=== PATIENT | male | born 1940 | race Caucasian/White ===

== ENCOUNTER 2016-04-21 09:54 | Inpatient (IN) | payer OTHER, MEDICARE ==
[~2016-04-21] VITALS: Ht 195.6 cm; Wt 109.5 kg
[~2016-04-21 09:54] MED LIST: AMARYL4 MG PO; ASPIR 8181 M1 PO; ASPIRIN325 MG PO; Amaryl PO; Ascorbic Acid,Ester- PO; Betapace,Sorine PO; CEFDINIR300 MG PO; CEPHALEXIN500 MG PO; CIPRO250 MG PO; CLOTRIMAZOLE15 GM TP; COREG12.5 M1 PO; Colace PO; Colchicine,Colcrys PO; Coreg PO; Coumadin,Jantoven PO; DOCUSATE SODIU100 MG PO; Dilaudid PO; Dulcolax PO; Ecotrin PO; FISH OIL OMEGA1 EACH PO; FISH OIL SOFTG1 EACH PO; FLOMAX0.4 MG PO; FOLIC ACID1 MG PO; FORTAMET1000 M1 PO; Feosol PO; Flexeril PO; GABAPENTIN100 MG; GLIPIZIDE5 MG PO; GLUCOPHAGE1000 MG PO; GLUCOTROL5 MG PO; INR ON; IRON325 M1 PO; K-Dur PO; Keflex PO; LANTUS 3 M100 UNITS1 SC; LASIX40 MG PO; LASIX80 MG PO; LEVBID0.375 MG PO; LEVEMIR FL100 UNITS/ SC; LITE COAT ASPI325 M1 PO; LO-DOSE ASPIRIN81 M1 PO; Lovenox SC; MELATONIN10 M1 PO; MELATONIN3 MG PO; MULTI VITAMIN1 EACH PO; MYBETRIC PO; MYRBETRIQ50 MG PO; NOVOLOG 10100 UNITS/ SC; NOVOLOG PE100 UNITS/ SC; Neurontin PO; OMEPRAZOLE40 M1 PO; OxyCONTIN PO; PRAVACHOL40 MG PO; PRAVACHOL80 MG PO; PRAVASTATIN SOD40 MG PO; PREVACID15 MG PO; PRILOSEC40 MG PO; Protonix PO; Remeron PO; SENNA-TIME S T1 EACH PO; SENOKOT S,PE1 TABLET PO; SOTALOL80 MG PO; TAMSULOSIN HCL0.4 MG PO; THERAGRAN1 TABLET PO; TRICOR48 MG PO; TYLENOL EXTRA500 MG PO; Tylenol Extra Streng PO; Tylenol Regular Stre PO; VOLTAREN 1% GE100 GM TP; WELCHOL625 MG PO
[2016-04-21 10:54] LABS: EOSINOPHIL (%) 0.3 % (0-5); HEMATOCRIT 41.8 % (38.0-50.0); IMMATURE GRANULOCYTE (%) 0.1 % (0.0-0.7); IMMATURE GRANULOCYTE COUNT 0.1 K/uL; MCH 30.9 PG (29.0-34.0); MCHC 33.7 G/DL (30.0-36.0); MCV 91.7 FL (86-99); MEAN PLAT.VOLUME 11.8 uM^3 (9.0-12.4); MONOCYTE (%) 11.3 % (3-12); NEUTROPHIL (%) 76.8 % (45-76); PLATELET COUNT 101 K/uL (156-360); RBC DIS.WIDTH-CV 13.9 % (11.8-14.6); RBC DIS.WIDTH-SD 45.8 % (39-53); RED BLOOD COUNT 4.56 M/uL (4.00-5.50); WHITE BLOOD COUNT 9.1 K/uL (4.1-10.2)
[2016-04-21 11:03] LABS: INTER. NORMALIZED RATIO 1.2; PROTHROMBIN TIME 11.8 (9.2-11.2)
[2016-04-21 11:05] LABS: CHLORIDE 104 mEq/L (99-109); POTASSIUM 4.6 mEq/L (3.7-5.4); SODIUM 140 mEq/L (136-147)
[2016-04-21 11:07] LABS: GLUCOSE 201 mg/dL (70-99)
[2016-04-21 11:08] LABS: ANION GAP 11 MEQ/L (2-14)
[2016-04-21 11:09] LABS: TOTAL BILIRUBIN 1.2 mg/dL (0.0-1.0)
[2016-04-21 11:11] LABS: ALKALINE PHOSPHATASE 148 IU/L (3-129); GFR ESTIMATE (CALCULATED) 49 mL/min/
[2016-04-21 11:12] LABS: UREA NITROGEN (BUN) 18 mg/dL (9-23)
[2016-04-21 11:15] LABS: TROP-I INTERPRETATION NEGATIVE; TROPONIN-I 0.02 ng/mL (0.0-0.30)
[2016-04-21 11:39] LABS: ADD MIUA? YES; BILIRUBIN NEGATIVE; BLOOD NEGATIVE; COLOR YELLOW ((YELLOW)); GLUCOSE (STRIP) NEGATIVE; KETONES NEGATIVE; LEUKOCYTES LARGE; NITRITE POSITIVE; PROTEIN (STRIP) TRACE
[2016-04-21 11:55] LABS: CASTS NONE SEEN /LPF; EPITHELIAL CELLS RARE; MUCUS NONE SEEN; PATHOLOGICAL CAST NONE SEEN; RED BLOOD CELLS 0-5 /HPF (0-5); SMALL ROUND CELL NONE SEEN; YEAST-LIKE CELL NONE SEEN
[2016-04-21 12:14] LABS: UCUL ADDED? NO; WHITE BLOOD CELLS 30-40 /HPF (0-5)
[2016-04-21 12:15] LABS: BACTERIA 1+; CRYSTALS NONE SEEN
[2016-04-21] MEDS ORDERED: NOVOLOG PE100 UNITS/ SC ×2 (13:35)
[2016-04-21] MEDS ORDERED: FISH OIL OMEGA1 EAC2 PO (13:37)
[2016-04-21] MEDS ORDERED: WELCHOL625 MG PO (13:37)
[2016-04-21 15:15] VITALS: BP 117/71
[2016-04-21 16:29] LABS: POINT-OF-CARE METER ID UU13113717
[2016-04-21 18:45] LABS: TROP-I INTERPRETATION NEGATIVE; TROPONIN-I 0.02 ng/mL (0.0-0.30)
[2016-04-21 19:28] VITALS: BP 139/72
[2016-04-21 21:26] LABS: POINT-OF-CARE METER ID UU13113717
[2016-04-21 23:59] VITALS: BP 144/75
[2016-04-22 00:58] LABS: TROP-I INTERPRETATION NEGATIVE; TROPONIN-I 0.02 ng/mL (0.0-0.30)
[2016-04-22 03:45] VITALS: BP 106/64
[2016-04-22 06:33] LABS: POINT-OF-CARE METER ID UU13113717
[2016-04-22 06:57] LABS: TROP-I INTERPRETATION NEGATIVE; TROPONIN-I 0.01 ng/mL (0.0-0.30)
[2016-04-22 07:51] VITALS: BP 111/68
[2016-04-22 11:37] VITALS: BP 103/56
[2016-04-22 14:09] LABS: INFLUENZA A VIRAL ANTIGEN POSITIVE; INFLUENZA B VIRAL ANTIGEN NEGATIVE
[2016-04-22 15:34] VITALS: BP 116/68
[2016-04-22 16:13] LABS: POINT-OF-CARE METER ID UU13113717
[2016-04-22 23:09] LABS: POINT-OF-CARE METER ID UU13113717
[2016-04-22 23:23] VITALS: BP 132/74
[2016-04-23 03:11] VITALS: BP 141/66
[2016-04-23 06:37] LABS: HEMATOCRIT 39.9 % (38.0-50.0); MCH 30.6 PG (29.0-34.0); MCHC 33.1 G/DL (30.0-36.0); MCV 92.4 FL (86-99); PLATELET COUNT 93 K/uL (156-360); RBC DIS.WIDTH-CV 14.3 % (11.8-14.6); RBC DIS.WIDTH-SD 48.3 % (39-53); RED BLOOD COUNT 4.32 M/uL (4.00-5.50); WHITE BLOOD COUNT 6.9 K/uL (4.1-10.2)
[2016-04-23 06:52] LABS: EOSINOPHIL (%) 1.4 % (0-5); EOSINOPHIL COUNT 0.1 K/uL (0-0.3); IMMATURE GRANULOCYTE (%) 0.1 % (0.0-0.7); LYMPHOCYTE COUNT 1.2 K/uL (1.0-2.8); MONOCYTE (%) 18.2 % (3-12); MONOCYTE COUNT 1.3 K/uL (0-0.8); NEUTROPHIL (%) 62.3 % (45-76); NEUTROPHIL COUNT 4.3 K/uL (1.8-6.4)
[2016-04-23 07:04] LABS: ANION GAP 10 MEQ/L (2-14); CHLORIDE 104 MEQ/L (99-109); GFR ESTIMATE (CALCULATED) > 59 mL/min/; GLUCOSE 121 mg/dL (70-99); POTASSIUM 3.9 MEQ/L (3.7-5.4); SAMPLE HEMOLYSIS CHECK 0; SAMPLE ICTERIC CHECK 0; SAMPLE LIPEMIA CHECK 0; SODIUM 138 MEQ/L (136-147); UREA NITROGEN (BUN) 19 mg/dL (9-23)
[2016-04-23 07:29] VITALS: BP 134/70
[2016-04-23 11:35] LABS: POINT-OF-CARE METER ID UU13113725
[2016-04-23 14:57] VITALS: BP 150/73
[2016-04-23 16:29] LABS: POINT-OF-CARE METER ID UU13113725
[2016-04-23 19:30] VITALS: BP 132/74
[2016-04-23 20:52] LABS: POINT-OF-CARE METER ID UU13113725
[2016-04-24] VITALS: BP 129/68
[2016-04-24 03:30] VITALS: BP 132/70
[2016-04-24 06:19] LABS: POINT-OF-CARE METER ID UU13113725
[2016-04-24 08:10] VITALS: BP 130/76
[2016-04-24 10:04] LABS: POINT-OF-CARE METER ID UU13113717
[2016-04-24] MEDS ORDERED: OSELTAMIVIR PHO30 MG PO (11:25)
[2016-04-24] MEDS ORDERED: CEFDINIR300 MG PO (11:26)
== END 2016-04-24 12:33 | disposition home or self-care (01) | DRG 690 ==
LOC: EME → EDBD 09:54 → EME 09:54 → EDOF 12:52 → 5EAST 12:52
PROVIDERS: Hospitalist; Internal Medicine; Physician Assistant
DX: N39.0 Urinary tract infection, site not specified (principal); I48.92 Unspecified atrial flutter; J09.X2 Influenza due to identified novel influenza A virus with other respiratory manifestations; I12.9 Hypertensive chronic kidney disease with stage 1 through stage 4 chronic kidney disease, or unspecified chronic kidney disease; W19.XXXA Unspecified fall, initial encounter; I48.0 Paroxysmal atrial fibrillation; E78.5 Hyperlipidemia, unspecified; I25.10 Atherosclerotic heart disease of native coronary artery without angina pectoris; N18.3 Chronic kidney disease, stage 3 (moderate); M62.81 Muscle weakness (generalized); J44.9 Chronic obstructive pulmonary disease, unspecified; I67.2 Cerebral atherosclerosis; J84.10 Pulmonary fibrosis, unspecified; E11.65 Type 2 diabetes mellitus with hyperglycemia; E11.22 Type 2 diabetes mellitus with diabetic chronic kidney disease; Z79.4 Long term (current) use of insulin; Z95.5 Presence of coronary angioplasty implant and graft; Z95.2 Presence of prosthetic heart valve; Z86.73 Personal history of transient ischemic attack (TIA), and cerebral infarction without residual deficits; Z87.891 Personal history of nicotine dependence; Z88.0 Allergy status to penicillin; Z87.440 Personal history of urinary (tract) infections; Z88.2 Allergy status to sulfonamides; Z82.49 Family history of ischemic heart disease and other diseases of the circulatory system
CPT/HCPCS: 70450; 71020; 80048; 80053; 81003; 82948; 84484; 85025; 85610; 87040; 87502; 93005; 99281; 99285; J0696; J1650; J1815; J1956; J7030; J7050

== ENCOUNTER 2016-05-05 19:30 | Observation (INO) | payer OTHER, MEDICARE ==
[~2016-05-05] VITALS: Ht 195.6 cm; Wt 105.4 kg
[~2016-05-05 19:30] MED LIST changes: +FISH OIL OMEGA1 EAC2 PO; +OSELTAMIVIR PHO30 MG PO
[2016-05-05 20:00] LABS: POINT-OF-CARE METER ID UU13113778
[2016-05-05 20:18] LABS: EOSINOPHIL (%) 1.8 % (0-5); EOSINOPHIL COUNT 0.2 K/uL (0-0.3); HEMATOCRIT 41.7 % (38.0-50.0); IMMATURE GRANULOCYTE (%) 0.1 % (0.0-0.7); IMMATURE GRANULOCYTE COUNT 0.1 K/uL; MCH 30.5 PG (29.0-34.0); MCHC 33.6 G/DL (30.0-36.0); MCV 90.8 FL (86-99); MEAN PLAT.VOLUME 11.3 uM^3 (9.0-12.4); MONOCYTE COUNT 0.6 K/uL (0-0.8); NEUTROPHIL (%) 68.3 % (45-76); NEUTROPHIL COUNT 6.2 K/uL (1.8-6.4); RBC DIS.WIDTH-CV 13.8 % (11.8-14.6); RBC DIS.WIDTH-SD 44.9 % (39-53); RED BLOOD COUNT 4.59 M/uL (4.00-5.50)
[2016-05-05 20:23] LABS: PLATELET COUNT 165 K/uL (156-360); WHITE BLOOD COUNT 9.1 K/uL (4.1-10.2)
[2016-05-05 20:25] LABS: CHLORIDE 104 mEq/L (99-109); Estimated Average Glucose 183 mg/dL (70-123); POTASSIUM 4.1 mEq/L (3.7-5.4); SODIUM 137 mEq/L (136-147)
[2016-05-05 20:26] LABS: INTER. NORMALIZED RATIO 1.1; PROTHROMBIN TIME 11.4 (9.2-11.2); PTT 28.2 (25-32)
[2016-05-05 20:27] LABS: GLUCOSE 206 mg/dL (70-99)
[2016-05-05 20:28] LABS: ANION GAP 11 MEQ/L (2-14)
[2016-05-05 20:29] LABS: TOTAL BILIRUBIN 0.6 mg/dL (0.0-1.0)
[2016-05-05 20:31] LABS: ALKALINE PHOSPHATASE 154 IU/L (3-129); GFR ESTIMATE (CALCULATED) 58 mL/min/
[2016-05-05 20:32] LABS: UREA NITROGEN (BUN) 21 mg/dL (9-23)
[2016-05-05 20:35] LABS: TROP-I INTERPRETATION NEGATIVE; TROPONIN-I < 0.01 ng/mL (0.0-0.30)
[2016-05-05] MEDS ORDERED: ALPRAZOLAM0.25 M2 PO (21:03)
[2016-05-05] MEDS ORDERED: FISH OIL 1,0001 EA10 PO (21:06)
[2016-05-05 21:12] LABS: HDL CHOLESTEROL 26 MG/DL (Desirable>=40); NON-HDL CHOLESTEROL 143 mg/dL (Desirable<160); TOTAL CHOLESTEROL 169 mg/dL (Desirable<200); TRIGLYCERIDES 402 MG/DL (Normal: <150)
[2016-05-06 07:57] LABS: POINT-OF-CARE METER ID UU13113747
[2016-05-06 14:44] VITALS: BP 103/57
[2016-05-06 16:05] VITALS: BP 113/71
[2016-05-06] MEDS ORDERED: PLAVIX75 MG PO (17:04)
[2016-05-06] MEDS ORDERED: LO-DOSE ASPIRIN81 M2 PO (17:04)
== END 2016-05-06 17:57 | disposition home or self-care (01) ==
LOC: EME 19:30 → EDOF 23:18 → 5WEST 05-06 14:09
PROVIDERS: Emergency Medicine; Student in an Organized Health Care Education/Training Program
DX: G45.9 Transient cerebral ischemic attack, unspecified (principal); E78.5 Hyperlipidemia, unspecified; I10 Essential (primary) hypertension; E11.9 Type 2 diabetes mellitus without complications; Z86.73 Personal history of transient ischemic attack (TIA), and cerebral infarction without residual deficits; I25.10 Atherosclerotic heart disease of native coronary artery without angina pectoris; Z95.1 Presence of aortocoronary bypass graft; Z95.2 Presence of prosthetic heart valve; Z86.19 Personal history of other infectious and parasitic diseases; I48.0 Paroxysmal atrial fibrillation; I44.7 Left bundle-branch block, unspecified; Z87.891 Personal history of nicotine dependence; Z79.4 Long term (current) use of insulin; Z79.82 Long term (current) use of aspirin; Z88.0 Allergy status to penicillin; Z88.2 Allergy status to sulfonamides; Z88.8 Allergy status to other drugs, medicaments and biological substances; Z91.013 Allergy to seafood; Z82.49 Family history of ischemic heart disease and other diseases of the circulatory system
CPT/HCPCS: 70450; 70551; 71020; 80053; 80061; 81003; 82948; 83036; 84484; 85025; 85610; 85730; 93005; 93880; 99281; 99285; G0378; J1815

== ENCOUNTER 2017-06-21 08:49 | Day surgery (SDC) | payer OTHER, MEDICARE ==
[~2017-06-21] VITALS: Ht 195.6 cm; Wt 105.0 kg
[~2017-06-21 08:49] MED LIST changes: +ALPRAZOLAM0.25 M2 PO; +CYMBALTA20 MG PO; +FISH OIL 1,0001 EA10 PO; +LO-DOSE ASPIRIN81 M2 PO; +PLAVIX75 MG PO
== END 2017-06-21 11:00 | disposition home or self-care (01) ==
LOC: CATH 08:49
PROVIDERS: Internal Medicine Clinical Cardiac Electrophysiology
PROC: 0JPT02Z Removal of Monitoring Device from Trunk Subcutaneous Tissue and Fascia, Open Approach (ICD-10-PCS; principal; 2017-06-21)
DX: Z45.09 Encounter for adjustment and management of other cardiac device (principal); E11.9 Type 2 diabetes mellitus without complications; E78.5 Hyperlipidemia, unspecified; I11.9 Hypertensive heart disease without heart failure; I25.10 Atherosclerotic heart disease of native coronary artery without angina pectoris; I48.0 Paroxysmal atrial fibrillation; I73.9 Peripheral vascular disease, unspecified; D64.9 Anemia, unspecified; Z82.49 Family history of ischemic heart disease and other diseases of the circulatory system; Z79.82 Long term (current) use of aspirin; Z79.4 Long term (current) use of insulin; Z86.73 Personal history of transient ischemic attack (TIA), and cerebral infarction without residual deficits; Z95.1 Presence of aortocoronary bypass graft; Z95.2 Presence of prosthetic heart valve; Z87.891 Personal history of nicotine dependence
CPT/HCPCS: 82948; J2250; J3010

== ENCOUNTER 2017-10-15 21:58 | Emergency (ER) | payer OTHER, MEDICARE ==
[~2017-10-15] VITALS: Ht 195.6 cm; Wt 102.7 kg
[~2017-10-15 21:58] MED LIST changes: +LEVEMIR FL100 UNIT/1 SC
[2017-10-15 22:32] LABS: HEMATOCRIT 43.1 % (38.0-50.0); HEMOGLOBIN 14.6 G/DL (12.5-16.6); MCHC 33.9 G/DL (30.0-36.0); MCV 91.5 FL (86-99); PLATELET COUNT 127 K/uL (156-360); RBC DIS.WIDTH-CV 13.6 % (11.8-14.6); RBC DIS.WIDTH-SD 45.8 % (39-53); RED BLOOD COUNT 4.71 M/uL (4.00-5.50); WHITE BLOOD COUNT 7.6 K/uL (4.1-10.2)
[2017-10-15 22:44] LABS: CHLORIDE 105 mEq/L (99-109); POTASSIUM 4.4 mEq/L (3.7-5.4); SODIUM 139 mEq/L (136-147)
[2017-10-15 22:47] LABS: GLUCOSE 226 mg/dL (70-99)
[2017-10-15 22:49] LABS: CREATININE 1.3 mg/dL (0.6-1.3); GFR ESTIMATE (CALCULATED) 57 mL/min/ (58.99-99999)
[2017-10-15 22:50] LABS: UREA NITROGEN (BUN) 20 mg/dL (9-23)
[2017-10-15 23:14] LABS: TOTAL BILIRUBIN 0.5 mg/dL (0.0-1.0)
[2017-10-15 23:15] LABS: ALKALINE PHOSPHATASE 168 IU/L (3-129)
[2017-10-15 23:17] LABS: AST (GOT) 42 IU/L (2-34); DIRECT BILIRUBIN 0.1 mg/dL (0.0-0.3)
[2017-10-15 23:18] LABS: ALT (GPT) 32 IU/L (3-49)
[2017-10-15 23:19] LABS: CREATINE KINASE 206 IU/L (1-294); LIPASE 19 U/L (1.0-51.0)
[2017-10-15 23:27] LABS: TROP-I INTERPRETATION NEGATIVE; TROPONIN-I 0.01 ng/mL (0.0-0.30)
[2017-10-16 02:11] VITALS: BP 115/75
== END 2017-10-16 02:13 | disposition home or self-care (01) ==
LOC: EME 21:58
PROVIDERS: Physician Assistant
DX: N41.9 Inflammatory disease of prostate, unspecified (principal); E86.0 Dehydration; E11.9 Type 2 diabetes mellitus without complications; Z79.4 Long term (current) use of insulin; Z86.73 Personal history of transient ischemic attack (TIA), and cerebral infarction without residual deficits; Z95.1 Presence of aortocoronary bypass graft; Z88.2 Allergy status to sulfonamides; Z88.8 Allergy status to other drugs, medicaments and biological substances; Z88.0 Allergy status to penicillin; Z91.013 Allergy to seafood; Z87.891 Personal history of nicotine dependence
CPT/HCPCS: 70450; 71046; 74177; 80048; 80076; 82550; 83690; 84484; 85027; 93005; 99281; 99285; J7030